=== PATIENT | female | born 1975 | race Caucasian/White ===

== ENCOUNTER → 2024-12-23 | Outpatient (CLI) | payer OTHER ==
--- NOTE | 2024-12-24 08:47 | HMCIMG ---
EXAM: CT Cardiac calcium scoring. CLINICAL HISTORY: Screening. TECHNIQUE: Thin collimated axial CT cardiac images were obtained. A CT scan is done according to ALARA (As Low As Reasonably Achievable). CONTRAST: None. COMPARISON: None provided. FINDINGS: Calcium Score: VESSEL Number of lesions Volume mm3 Equi. Mass/mg Calcium score LM 0 0 .0 - 0.0 LAD 1 3.7 - 6.6 LCX 0 0.0 - 0.0 RCA 0 0.0 - 0.0 Total 1 3.7 - 6.6 IMPRESSION: The total calcium score is 6.6. 93th percentile. /[place]
== END | disposition home or self-care (01) ==
LOC: RAH 13:57
PROVIDERS: ATTEND Internal Medicine Cardiovascular Disease
DX: Z13.6 Encounter for screening for cardiovascular disorders (principal)
CPT/HCPCS: 75571